=== PATIENT | male | born 1950 | race African-American/Black ===

== ENCOUNTER 2023-02-01 08:58 | Emergency (ER) | payer MEDICARE, MEDICAID ==
[~2023-02-01] VITALS: Ht 175.3 cm; Wt 91.0 kg
[2023-02-01 09:01] VITALS: BP 110/80
[2023-02-01] MEDS ORDERED: ACETAMINOPHEN 325MG TABLET PO ONE (09:15)
[2023-02-01] MEDS ORDERED: TOPUD PO (11:06)
== END 2023-02-01 11:20 | disposition home or self-care (01) ==
LOC: ER 08:58
DX: M54.50 Low back pain, unspecified (principal); I11.0 Hypertensive heart disease with heart failure; I50.9 Heart failure, unspecified; Z88.6 Allergy status to analgesic agent; V89.2XXA Person injured in unspecified motor-vehicle accident, traffic, initial encounter; Y93.89 Activity, other specified; Y92.89 Other specified places as the place of occurrence of the external cause; Y99.8 Other external cause status
CPT/HCPCS: 72100; 99284

== ENCOUNTER 2023-03-24 02:50 | Inpatient (IN) | payer MEDICARE, MEDICAID ==
[~2023-03-24] VITALS: Ht 172.7 cm; Wt 86.6 kg
[~2023-03-24 02:50] MED LIST: TOPUD PO
[2023-03-24 05:18] LABS: BASOPHILS % 0.3 % (0.0-2.0); EOSINOPHILS % 0.7 % (0.0-5.0); HEMOGLOBIN. 12.7 g/dL (14.0-18.0); MEAN CORPUSCULAR HEMOGLOBIN 29.4 pg (28.0-32.0); MEAN CORPUSCULAR VOLUME 90.3 fL (80.0-94.0); MEAN PLATELET VOLUME 8.2 fl (7.4-10.4); PLATELET 195 x1000/uL (130-400); RED BLOOD CELL COUNT 4.32 mill/uL (4.7-6.1)
[2023-03-24 05:32] LABS: CHLORIDE 110 mEq/L (98-107)
[2023-03-24 16:00] VITALS: BP 111/75; PULSE 89; RESP 18; TEMP 98.6
[2023-03-24] MEDS ORDERED: ACETAMINOPHEN 325MG TABLET PO PRN (16:00)
[2023-03-24] MEDS ORDERED: ONDANSETRON HCL 4MG/2ML INJ IV PRN (16:00)
[2023-03-24] MEDS ORDERED: FUROSEMIDE 40MG/4ML VIAL IVP SCH (16:00)
[2023-03-24 16:40] VITALS: BP 108/70; PULSE 89; RESP 18; TEMP 98.6
[2023-03-24] MEDS ORDERED: ENOXAPARIN 40MG/0.4ML SYR SUBCUT SCH (18:00)
[2023-03-24 20:00] VITALS: BP 115/52; PULSE 93; RESP 23; TEMP 97.8
[2023-03-24] MEDS: FUROSEMIDE 40MG/4ML VIAL IVP SCH (20:33)
[2023-03-25] VITALS: BP 115/72; PULSE 93; RESP 13; TEMP 97.9
[2023-03-25 04:19] VITALS: BP 134/69; PULSE 92; RESP 20; TEMP 98
[2023-03-25 08:00] VITALS: BP 98/69; PULSE 93; RESP 20; TEMP 97.3
[2023-03-25] MEDS: FUROSEMIDE 40MG/4ML VIAL IVP SCH (09:00)
[2023-03-25] MEDS ORDERED: CARVEDILOL 3.125 MG TABLET PO SCH (09:00)
[2023-03-25 09:02] LABS: *AMPHETAMINES SCREEN URINE PRESUMTIVE POSITIVE (NEGATIVE); *BARBITURATES SCREEN URINE NEGATIVE (NEGATIVE); *BENZODIAZEPINES SCREEN URINE NEGATIVE (NEGATIVE); *COCAINE SCREEN URINE NEGATIVE (NEGATIVE); CANNABINOID URINE SCREEN NEGATIVE (NEGATIVE); METHADONE URINE SCREEN NEGATIVE (NEGATIVE); OPIATES URINE SCREEN NEGATIVE (NEGATIVE); PHENCYCLIDINE URINE SCREEN NEGATIVE (NEGATIVE)
[2023-03-25 12:00] VITALS: BP 108/76; PULSE 93; RESP 20; TEMP 97.3
[2023-03-25] MEDS ORDERED: METOPROLOL TARTRATE 25MG TABLET PO SCH (12:30)
[2023-03-25] MEDS: AMIODARONE HCL 200 MG TABLET PO SCH ×2 (13:28→18:33)
[2023-03-25] MEDS ORDERED: ENOXAPARIN 100MG/ML SYR SUBCUT SCH ×2 (14:00)
[2023-03-25 16:00] VITALS: BP 115/76; PULSE 93; RESP 20; TEMP 97.3
[2023-03-25] MEDS ORDERED: FUROSEMIDE 20MG TABLET PO SCH (17:00)
[2023-03-25 17:51] VITALS: BP 115/76; PULSE 93; TEMP 97.3; O2SAT 100
[2023-03-26] MEDS ORDERED: ENOXAPARIN 100MG/ML SYR SUBCUT SCH (06:00)
== END 2023-03-25 18:45 | disposition home health service (06) | DRG 291 ==
LOC: ER 02:50 → 3WST 06:02
PROVIDERS: ADMIT Internal Medicine; ATTEND Internal Medicine
PROC: 4B02XTZ Measurement of Cardiac Defibrillator, External Approach (ICD-10-PCS; principal; 2023-03-25)
DX: I13.0 Hypertensive heart and chronic kidney disease with heart failure and stage 1 through stage 4 chronic kidney disease, or unspecified chronic kidney disease (principal); I50.43 Acute on chronic combined systolic (congestive) and diastolic (congestive) heart failure; N17.9 Acute kidney failure, unspecified; D64.9 Anemia, unspecified; I48.91 Unspecified atrial fibrillation; N18.9 Chronic kidney disease, unspecified; Z95.810 Presence of automatic (implantable) cardiac defibrillator; Z88.1 Allergy status to other antibiotic agents; Z79.899 Other long term (current) drug therapy; Z79.1 Long term (current) use of non-steroidal anti-inflammatories (NSAID); Z88.6 Allergy status to analgesic agent; Z79.01 Long term (current) use of anticoagulants
CPT/HCPCS: 36415; 71045; 80048; 80053; 80305; 83880; 84484; 85025; 93005; 93306; 99291; J1650; J1940

== ENCOUNTER 2023-08-26 11:58 | Emergency (ER) | payer MEDICARE, MEDICAID ==
[~2023-08-26] VITALS: Ht 172.7 cm; Wt 80.0 kg
[~2023-08-26 11:58] MED LIST changes: +APIX5TAB PO; +ATOR40TA70 PO; +COR6 MT; +FURO-151 PO; +MEXI200C MT
[2023-08-26 12:01] VITALS: O2SAT 97
[2023-08-26 13:10] VITALS: BP 101/51; PULSE 89; RESP 18; TEMP 98.8
[2023-08-26 15:14] LABS: BASOPHILS % 0.5 % (0.0-2.0); EOSINOPHILS % 1.2 % (0.0-5.0); HEMATOCRIT. 45.6 % (42.0-52.0); HEMOGLOBIN. 14.3 g/dL (14.0-18.0); MEAN CORPUSCULAR HEMOGLOBIN 29.5 pg (28.0-32.0); MEAN CORPUSCULAR HGB CONC 31.3 g/dL (31.0-37.0); MEAN CORPUSCULAR VOLUME 94.3 fL (80.0-94.0); MONOCYTES % 8.3 % (2.0-8.0); PLATELET 196 x1000/uL (130-400); RED BLOOD CELL COUNT 4.84 mill/uL (4.7-6.1); RED CELL DISTRIBUTION WIDTH 15.6 % (11.6-14.6); WHITE BLOOD COUNT 6.8 x1000/uL (4.5-11.0)
[2023-08-26 15:31] LABS: ALANINE AMINOTRANSFERASE 20 IU/L (10-49); ALBUMIN 3.9 g/dL (3.2-4.8); ASPARTATE AMINOTRANSFERASE 28 IU/L (<34); BILIRUBIN TOTAL 0.9 mg/dL (0.1-1.0); CALCIUM 9.2 mg/dL (8.7-10.4); CARBON DIOXIDE 26 mEq/L (21-32); CHLORIDE 104 mEq/L (98-107); CREATININE 1.4 mg/dL (0.6-1.3); GLUCOSE 121 mg/dL (70-105); PHOSPHORUS 3.2 mg/dL (2.5-4.9); POTASSIUM 4.7 mEq/L (3.5-5.1); PROTEIN TOTAL 7.5 g/dL (6.0-8.3); SODIUM 138 mEq/L (136-145); TROPONIN I HIGH SENSITIVITY 36 ng/L (3.0-53); UREA NITROGEN BLOOD 20 mg/dL (9-23)
[2023-08-26 17:35] LABS: TROPONIN I HIGH SENSITIVITY 39 ng/L (3.0-53)
[2023-08-26] MEDS ORDERED: ACETAMINOPHEN 325MG TABLET PO ONE (17:45)
== END 2023-08-26 18:19 | disposition home or self-care (01) ==
LOC: ER 13:23
DX: R07.89 Other chest pain (principal); I48.91 Unspecified atrial fibrillation; I11.0 Hypertensive heart disease with heart failure; I50.9 Heart failure, unspecified; I25.10 Atherosclerotic heart disease of native coronary artery without angina pectoris; Z95.0 Presence of cardiac pacemaker
CPT/HCPCS: 36415; 71045; 80053; 83735; 83880; 84100; 84484; 85025; 93005; 99285